=== PATIENT | male | born 1960 | race Caucasian/White ===

== ENCOUNTER 2016-12-24 06:49 | Observation (INO) | payer OTHER ==
[2016-12-24] VITALS (16 sets, daily range): BP systolic 119–147; BP diastolic 75–93; PULSE 72–118; TEMP 36.3–37; O2SAT 95–99; Ht 193 cm; Wt 114.9 kg
[~2016-12-24] VITALS: Ht 193 cm; Wt 114.9 kg
--- NOTE | 2016-12-24 07:26 | HISTORY & PHYSICAL EXAMINATION ---
DATE OF ADMISSION: 12/24/2016 CHIEF COMPLAINT: Shortness of breath. HISTORY OF PRESENT ILLNESS: This is a patient I last saw in the office back in September. He has a history back in August being admitted to the [facility] due to dyspnea on exertion, found to be in newly diagnosed atrial flutter with rapid ventricular response. He was discharged on metoprolol. His stress test was unremarkable. Since the hospital discharge, he has been having dyspnea on exertion and not feeling himself. He does have a lot of anxiety. He is still recommended to have a further renal mass ablation as they were not able to move it all. Post-ablation, he was complicated with right internal jugular DVT. He denies any lightheadedness, dizziness, chest pains or palpitations. PAST MEDICAL HISTORY: Left renal cell mass, left jugular venous thrombosis after the renal cell mass ablation, cervical adenopathy, history of kidney stone, general anxiety disorder, persistent atrial flutter with rapid ventricular response. PAST SURGICAL HISTORY: Tonsillectomy, cysto a year ago, lithotripsy in August 2015 on the left and a CT guided tissue biopsy in February 2016. ALLERGIES: No known drug allergies. MEDICATIONS: Aspirin, metoprolol and Xarelto. FAMILY HISTORY: The patient's father had prostate cancer. SOCIAL HISTORY: He is single, not . A lifelong nonsmoker. Social alcohol use. REVIEW OF SYSTEMS: Positive for activity change and fatigue as well as shortness of breath. All other 10 point review of systems are reviewed and are essentially negative at this time. PHYSICAL EXAMINATION: VITAL SIGNS: Telemetry, atrial flutter, blood pressure 130/80, heart rate is in the 70s. GENERAL: He is awake, alert and oriented x3, in no acute distress, sitting comfortably on the stretcher. HEENT: Normocephalic, atraumatic. Extraocular motion are intact. Sclerae is nonicteric. Mucous membranes moist. NECK: Supple, no carotid bruits appreciated. No JVD. CARDIOVASCULAR: Normal S1 and S2, but irregular rhythm, normal rate, no murmur. Pulses are all intact, carotid, radial and posterior tibial +2/2 bilaterally. EXTREMITIES: No clubbing or cyanosis on his fingers. No edema of the bilateral extremities. PULMONARY: Clear to auscultation bilaterally. No wheezes, rales, rhonchi. ABDOMEN: Positive bowel sounds, soft, nontender. NEUROLOGIC: Grossly intact. SKIN: Grossly intact. PERTINENT TESTING: Exercise echocardiogram stress test in August 2016, he was in atrial flutter. He did get his heart rate to 85% and there was no ischemia. His resting echocardiogram, EF is normal at 62% and mildly dilated left atrium, right atrium, and right ventricle, mild AI. Nuclear stress test in August 2016 is negative for ischemia. EKG in September 2016, atrial flutter at 70. BMP, CBC unremarkable, within normal limits. IMPRESSION: 1. Persistent atrial flutter diagnosed in August 2016, CHADS2-VASc score 0 on Xarelto since early 11/2016 and metoprolol. 2. Dyspnea on exertion, probably due to #1. 3. Left renal cell mass, history of partial ablation. 4. History of right internal jugular deep vein thrombosis after the renal cell mass. He has been off Coumadin since August of this year. 5. Heterozygous for factor V Leiden. PLAN: Recommend atrial flutter ablation with MALLIKA prior to the procedure given his persistent atrial flutter and a history of DVT in the jugular vein after renal cell ablation, even now he is on Xarelto. I think a MALLIKA is still warranted. I discussed the procedure and possible risks with the patient, but the risks not limited to sudden cardiac , cardiac arrest, cerebrovascular accident, myocardial infarction, injury to the blood vessels, chamber of the heart, or hamilton electrical system where he would need a permanent pacemaker, , bleeding, infection as well as any injury to the back of his throat, stomach or esophagus during MALLIKA. He expressed understanding and wishes to proceed. JEANNETTE
[2016-12-24] MEDS ORDERED: METO50TA16 PO (07:27)
[2016-12-24] MEDS ORDERED: ASPI81TA28 PO (07:28)
[2016-12-24] MEDS ORDERED: RIVA1TAB4 PO (07:28)
[2016-12-24] MEDS ORDERED: VITACAP37 PO (07:37)
--- NOTE | 2016-12-24 08:04 | History and Physical ---
History & Physical Date of Service December 24, 2016. History & Physical Patient Name: Teo Jones III Date of : 1960 CHIEF COMPLAINT: Persistent atrial flutter HISTORY OF PRESENT ILLNESS: Mr Jones is a 56-year-old male who is been followed by Dr. Nation electrophysiology for diagnosis of persistent atrial flutter which was first recognized every 2016. He presented with symptoms of dyspnea on exertion. It initially been treated with metoprolol and anticoagulation. His symptoms have persisted. Bursitis atrial flutter he has also had a left renal mass with unsuccessful ablation in March 2016 and also had a right internal jugular vein DVT after renal mass ablation in March 2016. Patient steadily scheduled for an electrophysiology study and atrial flutter ablation today with Dr. Nation. He is to have a transesophageal echocardiogram to exclude left atrial appendage thrombus had the procedure. PAST MEDICAL HISTORY: 1. Anxiety 2. Left renal mass 3. Nephrolithiasis 4. Atrial flutter 5. Heterozygous for Factor V Leiden PAST SURGICAL HISTORY: 1. CT-guided tissue ablation in February 2016 2. Cystoscopy with lithotripsy 2015 3. Tonsillectomy FAMILY HISTORY: Cancer in father, details unavailable SOCIAL HISTORY: Non smoker Occasional alcohol use REVIEW OF SYSTEMS: A Complete Review of 10 Systems is as stated above or negative. ALLERGIES: Allergies HOME MEDICATIONS: Medications Dose Route/Sig Max Daily Dose Days Date Category E-400 (Vitamin E) 400 Unit Cap 400 Unit PO DAILY 12/24/16 Reported Xarelto (Rivaroxaban) 20 Mg Tab 20 Mg PO DAILY 12/24/16 Reported Aspirin Ec (Aspirin) 81 Mg Tab 81 Mg PO DAILY 12/24/16 Reported Lopressor (Metoprolol Tartrate) 50 Mg Tab 50 Mg PO BID 12/24/16 Reported PHYSICAL EXAMINATION: Last Vital Signs Documentation Date Time Temp Pulse Resp B/P Pulse Ox O2 Delivery O2 Flow Rate FiO2 12/24/16 07:00 36.3 85 22 127/89 96 Room Air General: AAOx3, No acute distress Head exam is unremarkable. No scleral icterus of corneal arcus noted. Neck is without jugular venous distension, thyromegally, or carotid bruits. Carotid upstrokes are brisk bilaterally. no bruits Lungs are clear to auscultation and percussion. Cardiac exam reveals the PMI to be normally sized and situated. Rhythm is regular. First and second heart sounds normal. No murmurs, rubs or gallops. Abdominal exam reveals normal bowl sounds, no masses, no organomegaly and no aortic enlargement. Extremities are nonedematous and both femoral and pedal pulses are normal. Psychiatric: normal affect and mood. Neurologic: grossly normal, no focal deficits ADDITIONAL DATA: Lexiscan stress 09/24/16: negative for ischemic LVEF 58% ASSESSMENT: Symptomatic atrial flutter History of R internal jugular DVT while off anticoagulation for kidney mass ablation RECOMMENDATIONS / PLAN: Proceed with MALLIKA for risk stratifiction, patient has been on uninterrupted Xarelto since Aug 2016. EPS, ablation to follow with Dr Nation. Saad Rachel DO, [facility] Associate Trim Sawyer [facility], [facility] The chart was completed utilizing [employer] Speech Voice Recognition Software. Grammatical errors, random word insertions, pronoun errors, and incomplete sentences are an occasional consequence of this system due to software limitations, ambient noise, and hardware issues. Any formal questions or concerns about the content, text, or information contained within the body of this dictation should be directly addressed to the provider for clarification.
--- NOTE | 2016-12-24 08:36 | Procedure Note ---
Pre-Mod Sedation Assessment General Date of Moderate Sedation: December 24, 2016. Vital Signs: Vital Signs Past 12 Hours Date Time Temp Pulse Resp B/P Pulse Ox O2 Delivery O2 Flow Rate FiO2 12/24/16 08:25 72 18 125/88 99 Nasal Cannula 4 12/24/16 08:20 118 18 147/93 95 Nasal Cannula 4 12/24/16 08:15 105 18 125/92 99 Nasal Cannula 4 12/24/16 07:00 36.3 85 22 127/89 96 Room Air Review Cardiovascular: no edema, no murmur, + irregularly irregular Abdomen: soft Lungs: lungs clear Airway Class: II Pre-Sedation Airway Assessment Oral Cavity: WNL Short Thick Neck: No Hx of Sleep Apnea: No Smoking Status: Never Smoker Mallampati Classification: Class II ASA Classification: Class II Procedure Planning Contraindications-for Mod Sed: None Yes Notes The planned sedation has been discussed with the patient and consent obtained. I have identified the patient, determined the appropriateness of sedation and have assessed the patient immediately prior to the procedure. All medicine(s) and interventions are by my order.
--- NOTE | 2016-12-24 08:36 | History & Physical Bridge Note ---
H&P Re-Evaluation Bridge Note: I have examined the patient, reviewed the History & Physical and in the interval since the performance of the History & Physical I have noted the following changes of clinical significance: No changes noted
[2016-12-24] MEDS ORDERED: PROPOFOL IV EMULSION 10 MG/ML 20 ML VIAL IV ONE (08:39)
[2016-12-24] MEDS ORDERED: LIDOCAINE HCL 2% 2 ML VIAL (20MG/ML) ONE (08:39)
--- NOTE | 2016-12-24 08:43 | Anesthesiology Progress Note ---
Anesthesia Post Op Note Date & Time December 24, 2016 at 08:42 Vital Signs Pain Intensity: 0 Vital Signs Past 12 Hours Date Time Temp Pulse Resp B/P Pulse Ox O2 Delivery O2 Flow Rate FiO2 12/24/16 08:35 88 18 129/82 97 Nasal Cannula 4 12/24/16 08:30 72 18 142/75 99 Nasal Cannula 4 12/24/16 08:25 72 18 125/88 99 Nasal Cannula 4 12/24/16 08:20 118 18 147/93 95 Nasal Cannula 4 12/24/16 08:15 105 18 125/92 99 Nasal Cannula 4 12/24/16 07:00 36.3 85 22 127/89 96 Room Air Notes Mental Status: alert / awake / arousable, participated in evaluation Pt Amnestic to Procedure: Yes Nausea / Vomiting: adequately controlled Pain: adequately controlled Airway Patency, RR, SpO2: stable & adequate BP & HR: stable & adequate Hydration State: stable & adequate Anesthetic Complications: no major complications apparent
--- NOTE | 2016-12-24 08:49 | Cardiology Procedure Brief Nt ---
Preliminary Cardiology Note Procedure Date December 24, 2016. Pre-Procedure Diagnosis atrial flutter Post-Procedure Diagnosis no left atrial appendage thrombus Procedure(s) Performed Foccused MALLIKA study to excluded LA, LESLYE thrombus prior to EP study, flutter ablation English Language Learner Tutor Quentin Rachel DO Jewellery Designer(s) NADER Xavier Estimated Blood Loss none Preliminary Findings No LA, LESLYE thrombus. Normal LVEF Recommendations Proceed with EPS/ ablation as planned. 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
[2016-12-24] MEDS ORDERED: MIDAZOLAM HCL 5 MG/ML 1 ML VIAL ONE ×2 (09:06→09:35)
[2016-12-24] MEDS ORDERED: FENTANYL CITRATE INJ 50 MCG/1 ML 2 ML VIAL ONE ×3 (09:06→10:29)
[2016-12-24] MEDS ORDERED: HEPARIN SOD (PORCINE) 1000 UNIT/ML 10 ML VIAL ONE (09:32)
--- NOTE | 2016-12-24 11:17 | Procedure Note ---
Post-Mod Sedation Assessment General Date of Moderate Sedation December 24, 2016. Vital Signs: Vital Signs Past 12 Hours Date Time Temp Pulse Resp B/P Pulse Ox O2 Delivery O2 Flow Rate FiO2 12/24/16 08:56 73 16 123/78 98 Room Air 12/24/16 08:46 81 16 122/79 98 Room Air 12/24/16 08:36 84 18 122/90 98 Nasal Cannula 4 12/24/16 08:35 88 18 129/82 97 Nasal Cannula 4 12/24/16 08:30 72 18 142/75 99 Nasal Cannula 4 12/24/16 08:25 72 18 125/88 99 Nasal Cannula 4 12/24/16 08:20 118 18 147/93 95 Nasal Cannula 4 12/24/16 08:15 105 18 125/92 99 Nasal Cannula 4 12/24/16 07:00 36.3 85 22 127/89 96 Room Air Review - Discharge Criteria Vital Signs Stable: Yes Alert/Oriented/Conversant: Yes Returned to Baseline Mental St: Yes Nausea Absent/Minimal: Yes Pain/Discomfort/Absent/Minimal: Yes Normal/Baseline Respirations: Yes Active Bleeding?: No Prescriptions Given: None Specific Proced. D/C Criteria Distal Pulses Present (Cardiac: Yes Groin site assessed-Card Cath: Yes Voided Prior To Discharge: N/A Discharged Patients Adult Escort/Transportation: N/A
--- NOTE | 2016-12-24 11:21 | [facility] Post Operative Brief Note ---
Immediate Operative Summary Operative Date December 24, 2016. Pre-Operative Diagnosis Persistent atrial flutter Post-Operative Diagnosis same, sinus rhythm, bidirectional block across the CTI Procedure(s) Performed EPS, 3D activation mapping of right atrial flutter and anatomical mapping of his bundle and C/s os and CTI, radiofrequency ablation of CTI Surgeon latia miller Cinder Crane Operator Surgeon(s) none Estimated Blood Loss <5cc Findings see official report Fluids (cc crystalloids) 600cc Specimens none Drains none Anesthesia versed 9mg and fentanyl 225mcg Complication(s) None Disposition PCU
--- NOTE | 2016-12-24 11:25 | Discharge Instructions ---
Discharge Instructions Date of Service December 24, 2016. Admission Reason for Admission: A Flutter,R/O Blood Clot*[place]-Ep* Discharge Discharge Diagnosis / Problem: persistent atrial flutter Discharge Goals Goal(s): Improve function Activity Recommendations Activity Limitations: as noted below Lifting Limitations: no more than 10 pounds (no heavy lifting or squating for 1 week) May Resume Sexual Activity: after one week Shower/Bathe: tomorrow Driving or Machine Use: resume 1 day after discharge . Instructions / Follow-Up Instructions / Follow-Up ACTIVITY RECOMMENDATIONS: It is common to feel weak and fatigue for a few days. * Do not drive or operate any motorized equipment for the next day. * Limit stair usage (2 or 3 trips a day only) for the next three days. * Do not lift anything heavier than 10 pounds for the next three days. * Do not engage in vigorous exercise or any sports for the next five days. * You may shower the day after your procedure, but do not immerse the area for three days. Cleanse the site gently with soap and water. SPECIAL CARE INSTRUCTIONS: * You may replace the pressure dressing or band-aid the morning after the procedure. * After your procedure, it is normal to have a small bruise or small lump at the site. Examine your site daily for any change in the bruise or lump, redness, swelling, drainage or numbness. Notify your doctor if any change. BLEEDING: * If there is a small amount of bleeding at the site, lie down and apply firm pressure with a clean cloth for ten minutes. When the bleeding stops, lie quietly keeping the procedure limb straight for six hours. Notify your doctor as soon as possible. * If the bleeding does not stop after ten minutes or if there is a large amount of bleeding or spurting, call 911 immediately. Continue to lie down and hold firm pressure until help arrives. SKIN IRRITATION: * You may experience some redness and/or swelling in the area where radiation was administered. If any skin irritation occurs, please contact your family physician. FOLLOW UP VISIT: Keep any scheduled doctor appointments. Current Hospital Diet Patient's current hospital diet: Regular Diet Discharge Diet Recommended Diet: Regular Diet Procedures Procedures Performed: EPS, 3D activation mapping of right atrial flutter and anatomical mapping of his bundle and C/s os and CTI, radiofrequency ablation of CTI Pending Studies Studies pending at discharge: no Medical Emergencies . Who to Call and When: Medical Emergencies: If at any time you feel your situation is an emergency, please call 911 immediately. . Non-Emergent Contact Non-Emergency issues call your: Abrasive Wheel Molder . . "Provider Documentation" section prepared by Gayle Nation. . VTE Core Measure Inpt VTE Proph given/why not?: Other Anticoagulation (xarelto)
[2016-12-24] MEDS ORDERED: ACETAMINOPHEN 325 MG TAB PO PRN (11:30)
--- NOTE | 2016-12-24 11:30 | Discharge Summary ---
Discharge Summary Date of Service December 24, 2016. Discharge Summary Admission Date: 12/24/2016 Discharge Date: December 25, 2016 Discharge Disposition: Home Principal Diagnosis: persistent atrial flutter Secondary Diagnoses/Problems: heterozygous for factor V leiden renal cell mass s/p partial ablation left IJ venous thrombus after renal cell ablation Procedures: EPS, 3d mapping of right atrial flutter, his bundle region, c/s and CTI, radiofrequency ablation of CTI Medication Reconciliation Continued Medications: Rivaroxaban (Xarelto) 20 Mg Tab 20 MG PO DAILY, TAB Discontinued Medications: Aspirin (Aspirin Ec) 81 Mg Tab 81 MG PO DAILY Metoprolol Tartrate (Lopressor) (Lopressor) 50 Mg Tab 50 MG PO BID, TAB Vitamin E (E-400) 400 Unit Cap 400 UNIT PO DAILY Admission Information Physical Exam (per Admitting): aaox3, nad, very anxious NC/AT, EOMI Supple, No JVD Irregular S1/S2, no murmur CTA b/l no w/r/r soft NT/ND No edema b/l No focal deficits Hospital Course Pt admitted for elective EPS and flutter ablation; he first had MALLIKA that ensured there was no atrial appendage thrombus. He then had EPS with atrial flutter radiofrequency ablation of cavo-tricuspid isthmus with successful bidirectional block. Pt monitored overnight and discharge home next day. Total time spent on discharge = This includes examination of the patient, discharge planning, medication reconciliation, and communication with other providers. Discharge Instructions ACTIVITY RECOMMENDATIONS: It is common to feel weak and fatigue for a few days. * Do not drive or operate any motorized equipment for the next 1 day. * Limit stair usage (2 or 3 trips a day only) for the next three days. * Do not lift anything heavier than 10 pounds for the next three days. * Do not engage in vigorous exercise or any sports for the next five days. * You may shower the day after your procedure, but do not immerse the area for three days. Cleanse the site gently with soap and water. SPECIAL CARE INSTRUCTIONS: * You may replace the pressure dressing or band-aid the morning after the procedure. * After your procedure, it is normal to have a small bruise or small lump at the site. Examine your site daily for any change in the bruise or lump, redness, swelling, drainage or numbness. Notify your doctor if any change. BLEEDING: * If there is a small amount of bleeding at the site, lie down and apply firm pressure with a clean cloth for ten minutes. When the bleeding stops, lie quietly keeping the procedure limb straight for six hours. Notify your doctor as soon as possible. * If the bleeding does not stop after ten minutes or if there is a large amount of bleeding or spurting, call 911 immediately. Continue to lie down and hold firm pressure until help arrives. SKIN IRRITATION: * You may experience some redness and/or swelling in the area where radiation was administered. If any skin irritation occurs, please contact your family physician. FOLLOW UP VISIT: Keep any scheduled doctor appointments.
--- NOTE | 2016-12-24 12:37 | OPERATIVE REPORT ---
DATE OF OPERATION: 12/24/2016 PREOPERATIVE DIAGNOSIS: Persistent atrial flutter. POSTOPERATIVE DIAGNOSIS: Same plus sinus rhythm and bidirectional block over the cavotricuspid isthmus. SURGEON: Dr. Gayle Nation. FAN ENGINE ENGINEER: None. ANESTHESIA: Monitored conscious sedation given under my supervision administered by Amarjit Arzola. Start time 9:16, end time 11:15. Total of 9 mg of Versed and 225 mcg of fentanyl. INTRAVENOUS FLUIDS: 600 mL. BLOOD LOSS: Less than 5 mL. CONDITION: Stable. URINE OUTPUT: Not applicable. SPECIMENS: None. FINDINGS: None. DRAINS: None. FINDINGS: See below. INDICATIONS: This is a 56-year-old gentleman with past medical history of renal cell mass where he underwent partially successful ablation last year. It was complicated by developed a left internal jugular venous thrombosis where he was on Coumadin for 6 months. I met him when he went into [facility] in August of this year where he was found to be in persistent atrial flutter with shortness of breath, CHADS2-VAS score of 0. He was started on metoprolol. He then was sent to hematology and had a workup and was found to be factor V Leiden positive heterozygous positive. He was started on Xarelto and recommended a flutter ablation. He also has a past medical history of anxiety. CONSENT: Consent was obtained prior to the patient going into the electrophysiology lab. The patient was informed of risks, benefits, alternatives to the procedure. Risks include but not limited to sudden cardiac , cardiac arrhythmias, cerebrovascular accident, myocardial infarction, injury to the blood vessels, chamber of the heart, ak chin electrical system, bleeding and infection. The patient understood these risks and agreed to undergo the procedure as planned. Informed consent was obtained. DESCRIPTION OF THE PROCEDURE: The patient was brought into the electrophysiology lab in a fasting state. He was connected to continuous lathe winder. Timeout was performed to ensure patient's identity and procedure correctly. The patient was prepped and draped over the bilateral groins in normal surgical standard fashion. Monitored anesthetic care was given throughout the procedure under my supervision for patient's comfort level. [place] precautions were maintained throughout the procedure. Prior to the patient going into the electrophysiology lab he did have a MALLIKA performed by my partner, which ruled out any left atrial thrombus. Lidocaine 1% 10 mL were given in the bilateral groins for local anesthesia. Using the modified Seldinger technique, venous access was obtained in the following manner; The left femoral vein had a 6-Togolese sheath which eventually had a quadripolar Charles catheter positioned in the high rate atrium. A 7-Togolese sheath followed by a 20 pole Halo catheter positioned around the right atrium. A 7-Togolese sheath followed by a Decapolar coronary sinus Biosense DF curved catheter positioned out in the coronary sinus. The right femoral vein had initially a 6-Togolese sheath was swapped out for an SRO followed then by the Biosense SmartTouch DF curved ablation catheter. We first did 3D activation map of the atrial flutter . The tachycardia cycle length was 230 milliseconds. It was a counter clockwise flutter involving the cavotricuspid isthmus. We proved that even more by doing entrainment with the ablation catheter on the cavotricuspid isthmus. Tachycardia cycle length minus PPI was 30. We also then did 3D mapping of the His bundle region and the AH was 64 milliseconds, HV was 52 milliseconds. We then placed the ablation catheter on the cavotricuspid isthmus from the tricuspid valve and pulled back with a series of radiofrequency navarro about 1 minute in duration each at [address] to the inferior vena cava-RA junction. Of note, there was a ridge and pocket close to the tricuspid valve portion of the cavotricuspid isthmus. The flutter did break during one of our ablations as we were closer to the IVC-RA junction. We continued ablation in touchups points, especially near that pocket and ridge until we had bidirectional block. Once we had bidirectional block, we then set up for a post-ablation electrophysiology study with the following findings: Sinus cycle length 678 milliseconds, AH 70, HV 50. ND interval 180 milliseconds, QRS 92 milliseconds, QT 322 milliseconds. AV Wenckebach 320 milliseconds. AV node ERP 600/310 and 400/330, atrial ERP was 600/220 and less than or equal to 400/200. The right ventricular ERP was 600/220 and 400/200. With the ablation catheter lateral to our line pacing from the ablation measuring to the coronary sinus proximal, medial to lateral line we had a cycle length of 170 milliseconds and vice versa when we were pacing medial to our line measuring to the lateral portion it was 150 milliseconds showing that we had bidirectional block. Sensed before ablation the time to go from proximal to our line to lateral was 65 milliseconds. We watched for 30 minutes. The bidirectional block remained. All the catheters were then removed from the heart and sheaths were pulled using manual compression to establish hemostasis. IMPRESSION: 1. Persistent typical counterclockwise right atrial flutter through the cavotricuspid isthmus. 2. Successful bicaval tricuspid isthmus radiofrequency ablation. 3. Bidirectional block across the cavotricuspid isthmus. 4. Normal AV rosa function. PLAN: Monitor patient post-procedure overnight, EKG. We will stop his metoprolol. He will continue Xarelto and in this situation he will probably be on it for life due to his factor V Leiden and the fact that he had a thrombus in the past when he was off anticoagulation. He will follow up in my [place] office in 1 month. He is not to do any heavy lifting or squatting for 1 week. I attest to the content of the Intraoperative Record and any orders documented therein. Any exceptio ns are noted below.
[2016-12-24] MEDS ORDERED: IV FLUIDS COMPLETED PRN (13:00)
[2016-12-24 13:03] LABS: HEMATOCRIT 38.7 % (42-52); MEAN PLATELET VOLUME 11.2 fL (7.4-10.4); PLATELET COUNT 194 K/uL (130-400); RED BLOOD COUNT 4.16 M/uL (4.7-6.1); WHITE BLOOD COUNT 8.73 K/uL (4.8-10.8)
[2016-12-24 13:34] LABS: MEAN CORPUSCULAR HGB CONC 33.3 g/dl (32-36)
[2016-12-24 13:49] LABS: CREATININE 0.89 mg/dl (0.60-1.40)
[2016-12-24] MEDS ORDERED: RIVAROXABAN 20 MG TAB PO SCH (16:45)
[2016-12-25 03:53] VITALS: BP 97/59; PULSE 77; TEMP 36.8; O2SAT 97
[2016-12-25 07:17] VITALS: BP 130/85; PULSE 78; TEMP 36.9; O2SAT 94
[2016-12-25] MEDS ORDERED: ASPIRIN 81 MG ECTAB PO SCH (09:00)
[2016-12-25 09:17] VITALS: BP 130/85; PULSE 78; TEMP 36.9; O2SAT 94
--- NOTE | 2016-12-25 11:00 | Cardiology Follow-Up ---
Subjective Subjective Date of Service: December 25, 2016. Pt evaluation today including: conversation w/ patient, physical exam, lab review Pain: none Review of Systems Constitutional: No fatigue, No fever Respiratory: No shortness of breath Cardiac: No chest pain, No edema, No palpitations Abdomen: No diarrhea, No nausea Objective Vital Signs Last Vital Signs Documentation Date Time Temp Pulse Resp B/P Pulse Ox O2 Delivery O2 Flow Rate FiO2 12/25/16 09:17 36.9 78 20 94 Room Air 12/25/16 07:17 130/85 12/24/16 11:15 6 Physical Exam: General Appearance: WD/WN, no apparent distress Eyes: bilateral eyes EOMI, bilateral eyes PERRL Neck: supple, no JVD Respiratory/Chest: lungs clear, normal breath sounds Cardiovascular: regular rate, rhythm, no edema, no JVD, no murmur Abdomen: normal bowel sounds (b/l groins soft no hematoma), soft Extremities: no pedal edema Neurologic/Psychiatric: alert, oriented x 3 Skin: warm/dry Assessment and Plan Impression: 1. Persistent atrial flutter s/p CTI ablation 12/24/2016 2. Heterozygous for Factor V Leiden 3. H/o Left IJ venous thrombus after renal cell ablation in 2015 4. H/o partially successful renal cell mass ablation 5. Anxiety Plan: -Ok to discharge home today -Lifelong Xarelto -No more metoprolol -F/u in my [place] office on 01/30/2017 at 10:25am Discharge planning: home Medications: Medications Administered Medications (Trade) Dose Ordered Sig/Michelle Route Start Time Stop Time Status Last Admin Dose Admin Midazolam HCl (Versed Inj) 5 mg STK-MED ONCE .ROUTE 12/24/16 09:06 12/24/16 09:07 DC 12/24/16 09:06 5 MG Fentanyl Citrate (Fentanyl Inj) 100 mcg STK-MED ONCE .ROUTE 12/24/16 09:06 12/24/16 09:07 DC 12/24/16 09:06 100 MCG Midazolam HCl (Versed Inj) 5 mg STK-MED ONCE .ROUTE 12/24/16 09:35 12/24/16 09:36 DC 12/24/16 09:35 4 MG Fentanyl Citrate (Fentanyl Inj) 100 mcg STK-MED ONCE .ROUTE 12/24/16 09:36 12/24/16 09:37 DC 12/24/16 09:36 100 MCG Fentanyl Citrate (Fentanyl Inj) 100 mcg STK-MED ONCE .ROUTE 12/24/16 10:29 12/24/16 10:30 DC 12/24/16 10:29 25 MCG Rivaroxaban (Xarelto Tab) 20 mg QDD PO 12/24/16 16:45 01/23/17 16:44 12/24/16 17:15 20 MG Lab Results: Telemetry: SR ECG: SR Last 24 Hours Test 12/24/16 12:52 White Blood Count 8.73 K/uL Red Blood Count 4.16 M/uL Hemoglobin 12.9 g/dL Hematocrit 38.7 % Mean Corpuscular Volume 93.0 fL Mean Corpuscular Hemoglobin 31.0 pg Mean Corpuscular Hemoglobin Concent 33.3 g/dl RDW Standard Deviation 44.3 fL RDW Coefficient of Variation 13.1 % Platelet Count 194 K/uL Mean Platelet Volume 11.2 fL Creatinine 0.89 mg/dl Est Creatinine Clear Calc Drug Dose 123.4 ml/min Estimated GFR () 109.2 Estimated GFR (Non- 94.3 Total Bilirubin 0.6 mg/dl Direct Bilirubin 0.1 mg/dl Aspartate Amino Transf (AST/SGOT) 18 U/L Alanine Aminotransferase (ALT/SGPT) 20 U/L Alkaline Phosphatase 50 U/L Total Protein 6.4 gm/dl Albumin 3.4 gm/dl Hepatitis C Antibody Screen NEG
--- NOTE | 2016-12-27 08:31 | TEE ---
*NOTICE TO RECEIVING DEMOCRAT AGENCY This information is strictly Confidential and protected under [place] law. [place] law prohibits you from making any further disclosure of this information unless further disclosure is expressly permitted by the written consent of the person to whom it pertains or is authorized by law. A general authorization for the release of medical or other information is not sufficient for this purpose. Hospital accepts no responsibility if the information is made available to any other person, INCLUDING THE PATIENT. Interpretation Summary * Name: SHIELA LYNCH Study Date: 12/24/2016 07:52 AM BP: 122/90 mmHg * Patient Location: [facility] [employer] HR: 84 * : 1960 (M/d/yyyy) Gender: Male Height: 76 in * Age: 56 yrs Ethnicity: [place] Weight: 240 lb * Ordering Physician: Saad Rachel DO, [facility] * Performed By: Emiliana Burton * * Reason For Study: AFLUTTER, R/O BLOOD CLOT * BSA: 2.4 m2 * -- Conclusions -- * A focussed MALLIKA examination was perfored to exclude left atrial appendage thrombus prior to electrophysiology study. * No thrombus is detected in the left atrial appendage. * No left atrial mass or thrombus visualized. Procedure Details * The transesophageal portion of this study was personally supervised by the undersigned interpreting physician. * MALLIKA Probe #3 utilized for procedure. Probe in 8:20am, the probe was taken out at 8:31am. 230 mg of propofol and 40 lidocaine was used during the test. * The study was performed in Cardiac Catheterization Lab. * Time out was conducted by the physician, nurse, and technology recruiter with positive identification of patient and procedure. * Informed consent for Transesophageal Echocardiogram was obtained prior to the procedure. * An intravenous line was placed. A topical anesthetic agent was used for oropharangeal anesthesia. A bite block was inserted. * Sedation performed by the anesthesia department. * The patient's vital signs, including blood pressure, heart rate, pulse oximetry and cardiac rhythm were monitored throughout the procedure . * A multifrequency, multiplane transesopheageal echocardiographic endoscope was inserted and manipulated in the standard fashion to achieve multiplane views. * Limited views were obtained. * A 2D transesophageal echocardiogram with spectral and color flow Doppler was performed. * The study was technically limited. * Limited views were obtained. Left Ventricle * The left ventricle is grossly normal size. * There is normal left ventricular wall thickness. * Left ventricular systolic function is normal. * Ejection Fraction = 55-60%. * The left ventricular wall motion is normal. Atria * The left atrium is mildly dilated. * No thrombus is detected in the left atrial appendage. * No left atrial mass or thrombus visualized. * Right atrial size is normal. * There was no atrial septal defect by 2 D imaging. Agitated saline contrast was not administered, and therefore a PFO was not excluded. Mitral Valve * Mitral stenosis is absent. * Mitral regurgitation was not assessed. Tricuspid Valve * There is no tricuspid stenosis. * Tricuspid regurgitation was not assessed. Aortic Valve * The aortic valve is trileaflet. * Aortic stenosis is absent. * Trace aortic regurgitation. Pulmonic Valve * The pulmonic valve was not assessed. Great Vessels * The aortic root is normal size. Right Ventricle * The right ventricular chamber size and systolic function were grossly normal on limited views. MMode 2D Measurements and Calculations Ao root diam 3.5 cm Ao root area 9.7 cm\S\2
== END 2016-12-25 11:59 | disposition home or self-care (01) ==
LOC: ENRESERVTM → ENRESERVDT → C.CATH 06:49 → C.2T 12:14
PROVIDERS: ADMIT Internal Medicine; ATTEND Internal Medicine
DX: I48.92 Unspecified atrial flutter (principal); I49.8 Other specified cardiac arrhythmias; D68.51 Activated protein C resistance; Z79.82 Long term (current) use of aspirin; Z98.890 Other specified postprocedural states; Z86.718 Personal history of other venous thrombosis and embolism; Z90.89 Acquired absence of other organs; Z80.42 Family history of malignant neoplasm of prostate